=== PATIENT | female | born 1955 | race Caucasian/White ===

== ENCOUNTER 2018-03-19 07:00 | Inpatient (IN) | payer BC, MEDICARE ==
--- NOTE | 2018-03-18 17:33 | Diagnostic Imaging Report ---
EXAMINATION: CHEST 2 VIEWS INDICATION: ^PRE OP ^[id number] ^1700 ^DR ORDERS COMPARISON: 08/25/2006 FINDINGS: PA and lateral views TUBES and LINES: None. LUNGS: Limited by body habitus. Mild central peribronchovascular thickening/cuffing, improved from prior exam. No definite focal consolidation. PLEURA: No pleural effusion or pneumothorax. HEART AND MEDIASTINUM: The cardiomediastinal silhouette is unremarkable. BONES AND SOFT TISSUES: No acute osseous lesion. Soft tissues are unremarkable. UPPER ABDOMEN: No free air under the diaphragm. IMPRESSION: Mild central peribronchovascular thickening/cuffing, improved from prior exam. No definite focal consolidation. Signed by: Dr. Shawn Lagunas MD on 03/18/2018 5:30 PM
[2018-03-18 17:45] LABS: BASOPHILS # (AUTO) 0.1 (0.0-0.1); BASOPHILS % 0.5 % (0.0-1.0); EOSINOPHILS # (AUTO) 0.1 (0.0-0.4); EOSINOPHILS % 0.9 % (0.0-6.0); HEMATOCRIT 42.4 % (34.2-44.1); LYMPHOCYTES % 23.1 % (18.0-39.1); MEAN CORPUSCULAR HEMOGLOBIN 30.9 pg (28-32); MEAN CORPUSCULAR VOLUME 93.6 fL (81-99); MONOCYTES # (AUTO) 0.9 (0.2-0.8); MONOCYTES % 7.1 % (4.4-11.3); NEUTROPHILS # (AUTO) 8.7 (2.1-6.9); NEUTROPHILS % 67.9 % (38.7-80.0); PLATELET COUNT 325 x10e3/uL (140-360); RED BLOOD COUNT 4.53 x10e6/uL (3.6-5.1); RED CELL DISTRIBUTION WIDTH 12.5 % (11.7-14.4)
[2018-03-18 18:02] LABS: ANION GAP 18.5 mmol/L (8-16); CALCIUM 10.5 mg/dL (8.4-10.2); CREATININE, SERUM 1.02 mg/dL (0.57-1.11)
[2018-03-18 18:05] LABS: POTASSIUM 5.5 mmol/L (3.5-5.1)
[~2018-03-19] VITALS: Ht 165.1 cm; Wt 106.4 kg
[~2018-03-19 07:00] MED LIST: ACTOS30 MG; AMARYL1 MG PO; CYCLOSET0.8 MG; Chantix; EFFEXOR75 MG PO; FARXIGA PO; FERROUS SULFAT325 MG PO; FLEXERIL10 MG PO; GLIMEPIRIDE2 MG PO; HUMALOG100 UNIT/1 SQ; HYDROCODON-ACE1 EA11 PO; HYDROCODON-ACE1 EAC9 PO; LANTUS100 UNIT/1 SQ; LANTUS100 UNITS/ SQ; LASIX40 MG PO; LEVAQUIN500 MG PO; LISINOPRIL2.5 MG PO; METFORMIN HCL500 MG PO; METOPROLOL TART25 MG PO; MUPIROCIN22 GM TOP; NORCO 10-325 T1 EACH PO; PANTOPRAZOLE SO40 MG PO; PLAVIX75 MG PO; POTASSIUM CHLO20 ME1 PO; SULFAMETHOXAZO1 EAC1 PO; SUPER B COMPLE150 MG PO; ULTRAM 50MG50 MG PO; VENLAFAXINE HC100 MG PO; VENLAFAXINE PO; VITAMIN D-32000 UNIT PO; XANAX0.5 MG PO; XANAX1 MG PO; ZOLPIDEM TARTRA10 MG PO
--- OUTSIDE RECORDS SUMMARY | 2018-03-19 07:03 | XMS REPORT ---
Author Author [facility] Address Unknown Phone Unavailable Care Team Providers Care Mechanical Design Engineer Name Role Phone JULIO CESAR MARIN Unavailable Unavailable Problems This patient has no known problems. Allergies, Adverse Reactions, Alerts This patient has no known allergies or adverse reactions. Medications This patient has no known medications. Results Test Description Test Time Test Comments Text Results Atomic Results Result Comments CHEST 2 VIEWS 2018-03-18 17:29:00 [facility] [address] [address] Patient Name: PEYMAN LOPEZ MR #: [id number] : 1955 Age/Sex: 62/F Req #: [id number] Adm Physician: Ordered by: JULIO CESAR MARIN DPM Report #: [id number] Location: OR Room/Bed: Procedure: [id number] DX/CHEST 2 VIEWS Exam Date: 03/18/18 Exam Time: 1700 REPORT STATUS: Signed EXAMINATION: CHEST 2 VIEWS INDICATION: PRE OP [id number] DR ORDERS COMPARISON: 08/25/2006 FINDINGS: PA and lateral views TUBES and LINES: None. LUNGS: Limited by body habitus. Mild central peribronchovascular thickening/cuffing, improved from prior exam. No definite focal consolidation. PLEURA: No pleural effusion or pneumothorax. HEART AND MEDIASTINUM: The cardiomediastinal silhouette is unremarkable. BONES AND SOFT TISSUES: No acute osseous lesion. Soft tissues are unremarkable. UPPER ABDOMEN: No free air under the diaphragm. IMPRESSION: Mild central pe ribronchovascular thickening/cuffing, improved from prior exam. No definite focal consolidation. Signed by: Dr. Shawn Lagunas MD on 03/18/2018 5:30 PM Dictated By: SHAWN LAGUNAS MD 173 Transcribed By: SHAYLEE on 03/18/18 173 COPY TO: JULIO CESAR MARIN DPM
[2018-03-19] MEDS ORDERED: VANCOMYCIN 1GM/NS 250 ML 250 ML ONE (07:27)
[2018-03-19] MEDS ORDERED: BACITRACIN 50,000 UNIT VIAL ONE (09:10)
[2018-03-19] MEDS ORDERED: FENTANYL CITRATE/PF 100MCG/2 ML INJ ONE ×2 (10:16→16:25)
--- NOTE | 2018-03-19 11:09 | Consultation ---
DATE OF CONSULTATION: March 19, 2018 CHIEF COMPLAINT/HISTORY OF CHIEF COMPLAINT: Ms. Augusta Tipton is well known to me as a patient being seen by myself and Dr. Moreno on an outpatient basis. She presented to my office last week with an ulceration/foreign body, plantar aspect of the left foot. She was placed on oral antibiotics and a local wound debridement was performed in the office. She failed to respond, and in fact actually worsened with an increase in redness, swelling and drainage to the left foot, and was ultimately admitted this morning through outpatient for I and D of the left foot, and direct admit for further medical workup, particularly infectious disease and vascular. PAST MEDICAL HISTORY: The patient does have diabetes, hypertension and a history of heart disease. REVIEW OF SYSTEMS: Otherwise negative. She is complaining of pain at this point in the left foot, which she states is worsening rather than improving. SOCIAL HISTORY: Shows a obese white female who lives with her . She does not drink alcohol or smoke tobacco. ALLERGIES: ADMITTED TO PENICILLIN. CURRENT MEDICATIONS: Are well documented elsewhere within the chart. PHYSICAL EXAMINATION LOWER EXTREMITIES: Vascular status: The patient has nonpalpable pedal pulses in the dorsalis pedis or posterior tibial. Skin temperature is warm with redness on the dorsum of the foot. NEUROLOGIC: There is a loss of protective sensation. However, the patient is complaining of pain in the left lower extremity increasing in intensity. DERMATOLOGIC: There is what appears to be a portal of entry subsecond metatarsal on the left foot, small and sealed over with a surrounding pallor that resembles an abscess. There is a redness with mild streaking on the dorsum of the foot to the ankle. MUSCULOSKELETAL: Radiographs are negative for obvious bone involvement at this point. No gas is seen on plain films in the office. The patient came in through outpatient today for I and D of this abscessed area on the left foot, and will be admitted direct admit from outpatient stepdown unit to the floor for further medical workup to include MRI, consultations with Dr. Hanley of infectious disease, and Dr. Newman for workup for possible revascularization. Job#: [id number] RI
--- NOTE | 2018-03-19 11:24 | Operative Report ---
DATE OF PROCEDURE: March 19, 2018 Outpatient for direct admit [facility]. PREOPERATIVE DIAGNOSIS: Abscess, cellulitis of left foot. POSTOPERATIVE DIAGNOSIS: Abscess, cellulitis of left foot. TITLE OF OPERATION: Incision and drainage of the left foot. PROCEDURE DETAILS: Patient was taken to the operating room in a mildly sedated state and placed upon the operating table in supine position. Following induction of a general anesthetic, the left lower extremity was elevated to 60 degrees to exsanguinate. No tourniquet was used. Placed upon the operating table. A linear longitudinal incision was made overlying what appeared to be a portal of entry of a foreign body in the plantar aspect of the 2nd metatarsal of the left foot. There was no abscessing, no obvious purulence. There was necrotic wound debris within the wound itself. This was debrided and the area was irrigated with Simpulse to clear the area. The plantar wound with hyperkeratotic thickened, hyperkeratotic wound was removed from the wound as well. The area was packed open with 1/4 inch iodoform and it was noted that there was very minimal bleeding at the time of surgery in the area of the wound. The patient is being admitted for IV antibiotics, further medical workup, and evaluation for possible limb salvage with invasive cardiology due to severe peripheral arterial disease in a nonhealing, worsening wound. She will be admitted after PACU. Job#: [id number] FRANCIS
[2018-03-19] MEDS ORDERED: PROMETHAZINE 25MG/ NS 50ML (IV) IV PRN (11:45)
[2018-03-19] MEDS ORDERED: MAGNESIUM HYDROXIDE 30 ML UDC PO PRN (11:45)
[2018-03-19] MEDS ORDERED: SODIUM CHLORIDE FLUSH 10 ML SYR INJ PRN (11:45)
[2018-03-19 12:35] VITALS: BP 120/58
[2018-03-19] MEDS: HYDROCODONE/APAP 5MG-325MG TAB PO PRN ×2 (12:59→23:39)
--- NOTE | 2018-03-19 13:33 | Consultation ---
DATE OF CONSULTATION: March 19, 2018 REASON FOR CONSULTATION: Infection of the foot not healing. HISTORY OF PRESENT ILLNESS: This patient who is a 62-year-old female with history of diabetes mellitus, history of obesity, history of hypertension, stepped on a piece of glass about 10 days ago, went to see Dr. Li. That piece of glass was removed. The patient, however, continued to have redness and swelling and not doing well. The patient was admitted and underwent debridement today. Apparently there is no blood flow noted intraoperatively. Infectious disease was consulted. MEDICATION LIST: She is currently on acetaminophen. LABORATORY DATA: White count 12.88, hemoglobin 14.0, hematocrit 42. Her sodium 134, potassium 5.5, creatinine 1.02, glucose 252. Her chest x-ray showed no focal consolidation. PHYSICAL EXAMINATION GENERAL: She is currently alert, oriented, does not seem to be in acute distress. VITALS: Stable, currently afebrile. HEENT: She is not icteric. NECK: Supple. CHEST: Clear. COR: S1, S2, no murmur. ABDOMEN: Soft. Bowel sounds are present. No tenderness. EXTREMITIES: No edema. IMPRESSION: Infection of the foot, status post irrigation and debridement. Agree with vascular workup. Will obtain x-ray and an magnetic resonance imaging to rule out bone infection. Will put the patient on vancomycin and will follow with vancomycin trough on the 4th dose. Will add cefepime 1 g q.12. Aware of PENICILLIN ALLERGIES, but the patient did well with Zosyn. Will obtain an x-ray and a magnetic resonance imaging. Check complete blood count, chemistry panel and sed rate and will follow with you. Job#: [id number] FRANCIS
[2018-03-19] MEDS: VANCOMYCIN HCL 1.25 GM in SODIUM CHLORIDE 0.9% 250ML 250 ML IV SCH (14:00)
[2018-03-19 14:04] VITALS: BP 120/58
[2018-03-19] MEDS ORDERED: LIDOCAINE HCL 2% LOCAL INJ 5 ML SDV VIAL INJ ONE (15:22)
[2018-03-19] MEDS ORDERED: PROPOFOL IV EMULSION 10 MG/ML 20 ML VIAL ONE (15:22)
[2018-03-19] MEDS ORDERED: SEVOFLURANE INHAL SOLN 250 ML PEN BTL ONE (15:22)
[2018-03-19] MEDS ORDERED: ONDANSETRON HCL INJ 2 MG/ML VIAL ONE (15:22)
[2018-03-19] MEDS ORDERED: METOCLOPRAMIDE HCL 10 MG/2ML VIAL ONE (15:22)
[2018-03-19 15:52] VITALS: BP 115/53
--- NOTE | 2018-03-19 15:53 | Consultation ---
DATE OF CONSULTATION: March 19, 2018 CARDIOLOGY CONSULTATION REASON FOR CONSULTATION: Peripheral arterial disease. HISTORY OF PRESENT ILLNESS: This is a 62-year-old woman who has a history of obesity, diabetes mellitus, hypertension, hyperlipidemia, congestive heart failure, and prior tobacco use, who presented for elective incision and drainage of left foot abscess. The patient evidently stepped on a foreign body and continued to not have adequate healing. Underwent local wound debridement. However, this continued to worsen, which prompted her admission. She otherwise feels well. Denies any chest pain, shortness of breath or palpitations. We have been asked to evaluate the patient for peripheral vascular disease. PAST MEDICAL HISTORY: Hypertension, hyperlipidemia, obesity, tobacco use, congestive heart failure, peripheral arterial disease. PAST SURGICAL HISTORY: Incision and drainage. FAMILY HISTORY: No premature coronary artery disease or sudden cardiac . SOCIAL HISTORY: Former tobacco use. Denies any current or illicit drug use, alcohol use or tobacco use. ALLERGIES: PENICILLIN. MEDICATIONS: See medication reconciliation form. PHYSICAL EXAMINATION VITALS: Temperature is 97, respirations are 20, oxygen saturation is 93% on room air, blood pressure is 120/58, heart rate is 93. GENERAL: Well-appearing, obese and in no apparent distress. Lying comfortably in bed. HEENT: Head is normocephalic and atraumatic. Eyes: Extraocular movements are intact. Throat is clear. NECK: No JVD. No bruits. CARDIOVASCULAR: She is regular rate and rhythm. Mild systolic murmur at the base of the left sternal border. LUNGS: Clear to auscultation. ABDOMEN: Soft, nontender and nondistended. EXTREMITIES: There are mild skin changes of the lower extremity. There is a left foot wound dressed. Pulses are diminished in bilateral lower extremities. INPATIENT CARDIOVASCULAR MEDICATIONS: Reviewed. LABORATORY DATA: Reviewed. IMAGING DATA: Shows a chest x-ray that shows mild central peribronchovascular thickening . No focal consolidation. IMPRESSION 1. Peripheral arterial disease with lower extremity wound. 2. Hypertension. 3. Hyperlipidemia. 4. Prior tobacco use. 5. Diabetes mellitus. RECOMMENDATIONS: Clearly, this patient has physical exam findings of peripheral arterial disease with poor healing of her left foot wound. Will order arterial Dopplers and review these once these have been resulted. The patient may require inpatient peripheral intervention. Would reinitiate aspirin and statins as indicated for peripheral arterial disease. Job#: [id number] RI
[2018-03-19] MEDS ORDERED: TRAMADOL HCL 50 MG TAB PO SCH (16:00)
[2018-03-19] MEDS ORDERED: TRAMADOL HCL 50 MG TAB PO PRN (16:15)
[2018-03-19] MEDS ORDERED: MIDAZOLAM HCL 2 MG/2 ML VIAL ONE (16:25)
[2018-03-19] MEDS: CEFEPIME HCL 1 GM VIAL IV SCH (16:32)
[2018-03-19] MEDS: GLIMEPIRIDE 2 MG TAB PO SCH (18:15)
[2018-03-19] MEDS: BISMUTH SUBSALICYLATE 262 MG TAB PO SCH ×2 (18:15→21:00)
[2018-03-19] MEDS: TRIMETHOPRIM/SULFAMETHOXAZOLE 160-800 MG TAB PO SCH (18:16)
[2018-03-19 20:00] VITALS: BP 124/60
[2018-03-19] MEDS: ALPRAZOLAM 1 MG TAB PO SCH (21:00)
[2018-03-19] MEDS: LISINOPRIL 2.5 MG TAB PO SCH (21:00)
[2018-03-19] MEDS ORDERED: NON-FORMULARY MEDICATION (Zolpidem Tartrate 10 MG) PO SCH (21:00)
[2018-03-19] MEDS: METOPROLOL TARTRATE 25 MG TAB PO SCH (21:00)
[2018-03-19] MEDS: INSULIN DETEMIR 100 UNIT/ML PEN SQ SCH (21:00)
--- NOTE | 2018-03-19 21:29 | Diagnostic Imaging Report ---
EXAM: FOOT LEFT COMPLETE, AP, lateral and oblique INDICATION: Infection COMPARISON: None FINDINGS: BONES: No acute fractures. Very small well-corticated ossification adjacent to the distal lateral fifth digit proximal phalanx, likely from an old fracture. Moderate plantar calcaneal spur. JOINTS: No malalignment. SOFT TISSUES: Soft tissue swelling at the posterior dorsum of the foot. No radiopaque foreign bodies. Regional vascular calcifications. IMPRESSION: Soft tissue swelling of the foot without radial opaque foreign body or erosion. Signed by: Dr. Mary Howell M.D. on 03/19/2018 9:26 PM
[2018-03-19] MEDS: ZOLPIDEM TARTRATE 10 MG TAB PO PRN (23:39)
[2018-03-20] VITALS (7 sets, daily range): BP systolic 123–148; BP diastolic 57–66
[2018-03-20] MEDS: VANCOMYCIN HCL 1.25 GM in SODIUM CHLORIDE 0.9% 250ML 250 ML IV SCH ×2 (02:13→14:41)
[2018-03-20] MEDS: CEFEPIME HCL 1 GM VIAL IV SCH ×2 (02:13→12:30)
[2018-03-20 05:14] LABS: HEMATOCRIT 40.1 % (34.2-44.1); HEMOGLOBIN 13.2 g/dL (12.0-16.0); MEAN CORPUSCULAR HEMOGLOBIN 30.4 pg (28-32); MEAN CORPUSCULAR HGB CONC 32.9 g/dL (31-35); MEAN CORPUSCULAR VOLUME 92.4 fL (81-99); PLATELET COUNT 390 x10e3/uL (140-360); RED BLOOD COUNT 4.34 x10e6/uL (3.6-5.1); RED CELL DISTRIBUTION WIDTH 12.5 % (11.7-14.4)
[2018-03-20 05:38] LABS: ALANINE AMINOTRANSFERASE 15 IU/L (0-55); ALBUMIN/GLOBULIN RATIO 0.8 (0.8-2.0); ALKALINE PHOSPHATASE 100 IU/L (40-150); ANION GAP 12.5 mmol/L (8-16); BLOOD UREA NITROGEN 13 mg/dL (7-26); BUN/CREATININE RATIO 19 (6-25); CALCIUM 9.6 mg/dL (8.4-10.2); CARBON DIOXIDE 25 mmol/L (22-29); CHLORIDE 108 mmol/L (98-107); CREATININE, SERUM 0.69 mg/dL (0.57-1.11); EST GLOMERULAR FILTRATION RATE > 60 ML/MIN (60-); POTASSIUM 3.5 mmol/L (3.5-5.1); SODIUM 142 mmol/L (136-145)
[2018-03-20 05:54] LABS: GLUCOSE 50 mg/dL (74-118)
[2018-03-20] MEDS: HYDROCODONE/APAP 5MG-325MG TAB PO PRN ×2 (06:40→12:40)
--- NOTE | 2018-03-20 07:03 | Diagnostic Imaging Report ---
EXAM: CHEST SINGLE (PORTABLE), AP 1 view INDICATION: Peribronchial thickening COMPARISON: PA and lateral view the chest and retracted 2017 FINDINGS: LINES/TUBES: None LUNGS: No consolidations or edema. PLEURA: No effusions or pneumothorax. HEART AND MEDIASTINUM: Normal size and contour. BONES AND SOFT TISSUES: No acute findings. IMPRESSION: No acute thoracic abnormality. Signed by: Dr. Mary Howell M.D. on 03/20/2018 7:00 AM
[2018-03-20 07:32] LABS: EOSINOPHILS % (MANUAL) 3 % (0-7); LYMPHOCYTES % (MANUAL) 44 % (19-48); MONOCYTES % (MANUAL) 5 % (3.4-9.0); NEUTROPHILS % (MANUAL) 48 % (40-74); RBC MORPHOLOGY COMMENT NORMAL
[2018-03-20 07:33] LABS: PLATELET ESTIMATE ADEQUATE; PLATELET MORPHOLOGY COMMENT FEW LARGE
--- NOTE | 2018-03-20 08:56 | Progress Note ---
DATE: March 20, 2018 SUBJECTIVE: Patient is here for infection of the left lower extremity and patient is status post I and D of the abscess. Patient currently is sleepy, complains of some pain and patient is on pain management with tramadol. Patient also has a history of hypertension, is currently on lisinopril and metoprolol and for PAD, she is on Plavix. Currently getting vancomycin for her infection. OBJECTIVE VITAL SIGNS: Temperature is 96.2, pulse of 80, blood pressure is 125/58, SpO2 of 93%. GENERAL: Alert and oriented x3, sleepy but arousable. LUNGS: Clear to auscultation bilaterally. NECK: No JVD present. CVS: S1, S2 normal. ABDOMEN: Nontender. EXTREMITIES: Left lower extremity in wraps. Decreased pulses to the lower extremities bilaterally. ASSESSMENT AND PLAN 1. Left lower extremity abscess, status post incision and drainage. 2. Peripheral arterial disease. Patient is on Plavix. 3. Hyperlipidemia. Continue on statins. Prior tobacco use. We will continue monitoring. 1. Diabetes mellitus. The patient is on a sliding scale and is on oral diabetic medications too and Levemir 100 units nighttime. 1. We will continue to monitor the patient along with all consultants. For further information, look in the chart. Patient is allergic to PENICILLINS. Job#: [id number]
[2018-03-20] MEDS ORDERED: VENLAFAXINE HCL 100 MG PO SCH (09:00)
[2018-03-20] MEDS: BISMUTH SUBSALICYLATE 262 MG TAB PO SCH ×3 (09:00→20:58)
[2018-03-20] MEDS ORDERED: MUPIROCIN 2% OINT 22 GM TUBE TOP SCH (09:00)
[2018-03-20] MEDS: NON-FORMULARY MEDICATION ([Farxiga] 10 MG) PO SCH (09:00)
[2018-03-20] MEDS: VENLAFAXINE HCL 100 MG PO SCH (09:00)
[2018-03-20] MEDS: TRIMETHOPRIM/SULFAMETHOXAZOLE 160-800 MG TAB PO SCH ×2 (09:01→16:41)
[2018-03-20] MEDS: ALPRAZOLAM 1 MG TAB PO SCH ×3 (09:01→21:27)
[2018-03-20] MEDS: CLOPIDOGREL BISULFATE 75 MG TAB PO SCH (09:01)
[2018-03-20] MEDS: GLIMEPIRIDE 2 MG TAB PO SCH ×2 (09:01→16:41)
--- NOTE | 2018-03-20 12:15 | Progress Note ---
DATE: March 20, 2018 SUBJECTIVE: This patient, at this point in time, currently denies any nausea, vomiting, fever, chills, any thigh pain, chest pain, calf pain, or shortness of breath. PHYSICAL EXAMINATION: Reveals dressing is intact. No active drainage. OBJECTIVE EVALUATION: Patient is alert, awake and oriented x3, currently in no acute distress. Vital signs are stable. Lower extremity was reviewed which reveals decreased edema, decreased erythema, no active drainage. Packing is intact and in place. The wound on the plantar aspect of the left foot appears to be healthy and improving. Decreased edema and skin lines are present. ASSESSMENT 1. Status post incision and drainage with removal of foreign body, left foot. 2. Diabetes mellitus with peripheral neuropathy. 3. Peripheral vascular disease, left lower extremity. RECOMMENDATIONS: At this point in time, the dressing will be replaced. We still are awaiting vascular evaluation and Dr. Li will follow up on Thursday. Additionally, continue IV antibiotics and wound care as prescribed. Job#: [id number]
--- NOTE | 2018-03-20 17:49 | Progress Note ---
DATE: March 20, 2018 CARDIOLOGY PROGRESS NOTE SUBJECTIVE: Patient denies any chest pain or shortness of breath; however, does report some lower extremity pain on the left. OBJECTIVE VITAL SIGNS: Temperature is 98.1, heart rate is 97, respirations are 20, blood pressure is 146/65, oxygen saturation is 95% on 2 liters nasal cannula. GENERAL: Well-appearing obese woman, lying comfortably in bed, in no apparent distress. CARDIOVASCULAR: Regular rate and rhythm. LUNGS: Clear to auscultation. ABDOMEN: Obese, soft, nontender. EXTREMITIES: Diminished pulses. Left foot wound, which is dressed. DIAGNOSTIC DATA: Arterial Doppler ultrasound shows monophasic waveforms in the right femoral, popliteal, and tibial vessels. Also elevated velocities in the left femoral, popliteal, and tibial vessels as well. IMPRESSION 1. Peripheral arterial disease. 2. Lower extremity wound and abscess. 3. Hypertension. 4. Hyperlipidemia. 5. Prior tobacco use. 6. Diabetes mellitus. RECOMMENDATIONS: Continue current cardiovascular medications. Dopplers were reviewed and notable for bilateral lower extremity peripheral arterial disease. Patient likely will benefit from conventional angiography and possible intervention to allow for local wound healing. Job#: [id number] MAINOR
[2018-03-20] MEDS: METOPROLOL TARTRATE 25 MG TAB PO SCH (21:26)
[2018-03-20] MEDS: ZOLPIDEM TARTRATE 10 MG TAB PO PRN (21:27)
[2018-03-20] MEDS: LISINOPRIL 2.5 MG TAB PO SCH (21:27)
[2018-03-20] MEDS: INSULIN DETEMIR 100 UNIT/ML PEN SQ SCH (21:28)
[2018-03-21] VITALS (8 sets, daily range): BP systolic 111–180; BP diastolic 50–79
[2018-03-21] MEDS: VANCOMYCIN HCL 1.25 GM in SODIUM CHLORIDE 0.9% 250ML 250 ML IV SCH ×2 (02:06→16:18)
[2018-03-21] MEDS: CEFEPIME HCL 1 GM VIAL IV SCH (02:06)
[2018-03-21] MEDS: HYDROCODONE/APAP 5MG-325MG TAB PO PRN ×2 (03:20→20:25)
[2018-03-21 06:20] LABS: BASOPHILS % 0.4 % (0.0-1.0); EOSINOPHILS # (AUTO) 0.1 (0.0-0.4); EOSINOPHILS % 1.3 % (0.0-6.0); HEMOGLOBIN 12.2 g/dL (12.0-16.0); LYMPHOCYTES # (AUTO) 2.5 (1.0-3.2); LYMPHOCYTES % 24.7 % (18.0-39.1); MEAN CORPUSCULAR HEMOGLOBIN 30.7 pg (28-32); MONOCYTES # (AUTO) 0.8 (0.2-0.8); MONOCYTES % 7.9 % (4.4-11.3); NEUTROPHILS # (AUTO) 6.7 (2.1-6.9); PLATELET COUNT 309 x10e3/uL (140-360); RED BLOOD COUNT 3.98 x10e6/uL (3.6-5.1); RED CELL DISTRIBUTION WIDTH 12.3 % (11.7-14.4)
[2018-03-21 06:39] LABS: ANION GAP 11.2 mmol/L (8-16); BLOOD UREA NITROGEN 13 mg/dL (7-26); BUN/CREATININE RATIO 17 (6-25); CALCIUM 9.3 mg/dL (8.4-10.2); CARBON DIOXIDE 25 mmol/L (22-29); CHLORIDE 105 mmol/L (98-107); CREATININE, SERUM 0.77 mg/dL (0.57-1.11); EST GLOMERULAR FILTRATION RATE > 60 ML/MIN (60-); GLUCOSE 242 mg/dL (74-118); POTASSIUM 4.2 mmol/L (3.5-5.1); SODIUM 137 mmol/L (136-145)
--- NOTE | 2018-03-21 07:42 | Progress Note ---
DATE: March 21, 2018 SUBJECTIVE: Patient is sleeping, easily arousable, chest pain free, complaining of some pain in the left lower extremity, controlled with pain medication. OBJECTIVE VITAL SIGNS: Temperature is 97, pulse of 91, blood pressure is 148/66, and SpO2 of 97%. GENERAL: Patient is alert and oriented x3, , snoring, possible diagnosis of ILANA. LUNGS: Clear to auscultation bilaterally. CARDIOVASCULAR: S1 and S2 normal. Regular rhythm. ABDOMEN: Soft and nontender. EXTREMITIES: Diminished pulses. Left lower extremity dressed with no erythema present in the calf areas. LABORATORY AND DIAGNOSTIC DATA: Last potassium was 3.5. Hemoglobin 13.2 and hematocrit 40.2. Arterial Doppler showed peripheral arterial disease. ASSESSMENT AND PLAN 1. Left lower extremity cellulitis: Patient has podiatry consult and also a consult with cardiology for possible intervention. 2. Left extremity wound and abscess, status post debridement. 3. Hypertension: Continue on medications. 4. Hyperlipidemia: Continue on statin. 5. Diabetes mellitus: Continue with insulin Levemir and also insulin sliding scale. 1. We will add gastrointestinal prophylaxis to the medication regimen. Otherwise, continue same program. Job#: [id number] RYAN
[2018-03-21] MEDS: BISMUTH SUBSALICYLATE 262 MG TAB PO SCH ×3 (08:19→21:00)
[2018-03-21] MEDS: GLIMEPIRIDE 2 MG TAB PO SCH ×2 (08:26→16:18)
[2018-03-21] MEDS: NON-FORMULARY MEDICATION ([Farxiga] 10 MG) PO SCH (08:26)
[2018-03-21] MEDS: VENLAFAXINE HCL 100 MG PO SCH (08:26)
[2018-03-21] MEDS: TRIMETHOPRIM/SULFAMETHOXAZOLE 160-800 MG TAB PO SCH ×2 (08:26→16:18)
[2018-03-21] MEDS: CLOPIDOGREL BISULFATE 75 MG TAB PO SCH (08:26)
[2018-03-21] MEDS: ALPRAZOLAM 1 MG TAB PO SCH ×3 (08:26→22:46)
[2018-03-21] MEDS ORDERED: CEFAZOLIN SOD 1 GM/D5W 50ML 50 ML IV SCH (14:00)
[2018-03-21] MEDS: CEFAZOLIN SOD 1 GM VIAL IV SCH ×2 (15:39→22:46)
[2018-03-21] MEDS: INSULIN DETEMIR 100 UNIT/ML PEN SQ SCH (22:44)
[2018-03-21] MEDS: METOPROLOL TARTRATE 25 MG TAB PO SCH (22:47)
[2018-03-21] MEDS: LISINOPRIL 2.5 MG TAB PO SCH (22:47)
[2018-03-22] VITALS (11 sets, daily range): BP systolic 113–157; BP diastolic 50–86
[2018-03-22] MEDS: VANCOMYCIN HCL 1.25 GM in SODIUM CHLORIDE 0.9% 250ML 250 ML IV SCH (04:14)
[2018-03-22] MEDS: CEFAZOLIN SOD 1 GM VIAL IV SCH ×3 (06:46→22:00)
[2018-03-22 08:53] LABS: INR 0.76; PROTHROMBIN TIME 11.4 seconds (11.9-14.5)
[2018-03-22] MEDS: CLOPIDOGREL BISULFATE 75 MG TAB PO SCH (09:00)
[2018-03-22] MEDS: BISMUTH SUBSALICYLATE 262 MG TAB PO SCH ×3 (09:00→21:00)
[2018-03-22] MEDS: NON-FORMULARY MEDICATION ([Farxiga] 10 MG) PO SCH ×2 (09:03→11:51)
[2018-03-22] MEDS: ALPRAZOLAM 1 MG TAB PO SCH ×3 (09:03→21:05)
[2018-03-22] MEDS: TRIMETHOPRIM/SULFAMETHOXAZOLE 160-800 MG TAB PO SCH ×2 (09:03→18:03)
[2018-03-22] MEDS: VENLAFAXINE HCL 100 MG PO SCH (09:03)
--- NOTE | 2018-03-22 09:15 | Progress Note ---
DATE: March 22, 2018 Patient is seen today, resting comfortably. No pain currently in her left or right lower extremity. Family is present awaiting further workup by interventional cardiology. Abdominal peripheral angiography with possible intervention scheduled for today. Labs and events of the weekend were reviewed and discussed with the patient. Patient is stable, and I will continue to follow along with you. Job#: [id number]
--- NOTE | 2018-03-22 11:22 | Diagnostic Imaging Report ---
TECHNIQUE: Magnetic resonance imaging of the LEFT foot (forefoot) was performed WITHOUT injected contrast. Motion artifact partially limits sensitivity and specificity of the exam. HISTORY: Abscess, stepped on piece of glass 3 weeks ago, diabetic COMPARISON: Left foot radiographs March 19, 2018 DISCUSSION: Bone: No focal or infiltrative bone marrow replacing abnormality. No acute fracture or osteonecrosis. Joints: No dislocation. No effusion. Soft Tissues: Linear heterogeneous signal within the plantar soft tissues at the level of the base of the second proximal phalanx with associated subtle plantar soft tissue defect, regional edema and ill-defined 1 cm confluent fluid signal intensity within the plantar soft tissues medial to the base of the second proximal phalanx (series 9 image 22). Enhancement characteristics cannot be assessed. IMPRESSION: 1. No evidence of osteomyelitis. 2. Plantar soft tissue defect with associated regional edema and focal 1 cm fluid intensity which may reflect an evolving phlegmon or early abscess. Given these images, it is indeterminate if this is a drainable fluid collection. Signed by: Dr. Callum Read D.O., M.M.M. on 03/22/2018 11:19 AM
[2018-03-22] MEDS: GLIMEPIRIDE 2 MG TAB PO SCH ×2 (11:51→18:03)
[2018-03-22] MEDS: HYDROCODONE/APAP 5MG-325MG TAB PO PRN ×3 (11:51→22:03)
[2018-03-22] MEDS ORDERED: MIDAZOLAM HCL 2 MG/2 ML VIAL ONE (15:50)
[2018-03-22] MEDS ORDERED: SODIUM CHLORIDE 0.9% 1000ML 1,000 ML ONE ×2 (15:51→16:29)
[2018-03-22] MEDS ORDERED: IOPAMIDOL 300MG/ML 100 ML INFUS..BTL IV ONE ×2 (15:51→16:45)
[2018-03-22] MEDS ORDERED: FENTANYL CITRATE/PF 100MCG/2 ML INJ ONE (15:51)
[2018-03-22] MEDS ORDERED: HEPARIN SOD/SOD CHLORIDE 2,000 ML ONE (15:51)
[2018-03-22] MEDS ORDERED: LIDOCAINE HCL 2% LOCAL 20 ML VIAL ONE (15:51)
[2018-03-22] MEDS ORDERED: VERAPAMIL HCL 2.5 MG/ML 2 ML VIAL ONE (16:29)
[2018-03-22] MEDS ORDERED: NITROGLYCERIN/D5W 200 MCG/ML 250 ML ONE (17:18)
[2018-03-22] MEDS ORDERED: HEPARIN SOD (PORCINE) 1000 UNIT/ML 30ML ONE (17:18)
--- NOTE | 2018-03-22 18:20 | Operative Report ---
DATE OF PROCEDURE: March 22, 2018 PROCEDURES PERFORMED 1. Conscious sedation 70 minutes. 2. Abdominal aortography with bilateral iliofemoral runoff. 3. Third-order peripheral angiography of the left lower extremity. 4. First-order peripheral angiography of the right lower extremity. 5. Primary arterial thrombectomy. 6. Orbital atherectomy and percutaneous transluminal angioplasty of the left superficial femoral artery. PREPROCEDURE DIAGNOSIS: Peripheral arterial disease with nonhealing wound. POSTPROCEDURE DIAGNOSIS: Peripheral arterial disease with nonhealing wound. ESTIMATED BLOOD LOSS: Less than 20 mL. SPECIMENS REMOVED: None. PROCEDURE DETAILS: After informed consent was obtained, the patient was brought to the cardiac catheterization laboratory in a fasting and nonsedated state. Bilateral groins were prepped and draped in the usual sterile fashion. Lidocaine 2% was infiltrated over the right anterior groin for local anesthesia. Using a micropuncture needle, the right common femoral artery was accessed using modified Seldinger technique and a 5-Wolof sheath was placed. Next, an Omni Flush catheter was taken into the infrarenal abdominal aorta and abdominal aortography with bilateral iliofemoral runoff was performed. Next, this catheter was crossed up and over the iliac bifurcation with an Advantage wire and parked in the third-order position. Next, multiple digital subtraction angiography images were performed and revealed 2 severe left superficial femoral artery stenoses. Next, I crossed a 0.035 inch microcatheter into the distal popliteal vessel and performed digital subtraction angiography of the tibial vessels. Next, I crossed a ViperWire into the distal peroneal vessel. Next, I performed multiple runs of orbital atherectomy at both superficial femoral artery stenotic sites. Next, I performed balloon angioplasty with a drug-coated Lutonix balloon of 5 mm in diameter at the distal vessel. Next, a 40 mm Lutonix balloon was used for angioplasty of the proximal stenosis. Subsequent angiography revealed mild dissection in the distal SFA; so, this was tacked up with a 6 x 40 Ultraverse balloon. Final angiography revealed excellent angioplasty results with persistence of 1-vessel runoff. Patient was noted to have a chronic total occlusion of the posterior tibial and anterior tibial vessels at the start of the case. Next, the catheter was pulled back and peripheral angiography was performed of the right lower extremity. The site was closed with a Mynx device. The patient tolerated the procedure well with no immediate complications and was transported back to her room in stable condition. PROCEDURAL FINDINGS 1. Infrarenal abdominal aorta is free of aneurysm or dissection. 2. Bilateral iliac systems are patent. 3. Left superficial femoral artery has 2 tandem 70% and a distal 95% stenotic areas. The popliteal was patent. The anterior tibial and posterior tibial vessels are chronically occluded to the level of the ankle. There is a medium caliber peroneal vessel which then provides collaterals into the distal posterior tibial and anterior tibial. 4. The right superficial femoral artery has a proximal 90% and a mid 70% stenosis. The popliteal and the tibial vessels were not well visualized due to washout. IMPRESSION/RECOMMENDATIONS: This is a 62-year-old woman who presented with a nonhealing wound of the left lower extremity, who underwent successful percutaneous revascularization of the left superficial femoral artery. Patient has 1-vessel runoff with collateralization to the posterior tibial and dorsalis pedis vessels. Continue optimal medical therapy for peripheral arterial disease. Job#: [id number] AGAPITO
--- NOTE | 2018-03-22 18:30 | Progress Note ---
DATE: March 22, 2018 CARDIOLOGY PROGRESS NOTE SUBJECTIVE: Patient reports left lower extremity pain. No chest pain or shortness of breath. OBJECTIVE VITAL SIGNS: Temperature is 97.2, heart rate is 88, respirations are 18, blood pressure is 138/51, oxygen saturation is 95% on room air. GENERAL: Well-appearing, obese woman, lying comfortably in bed. CARDIOVASCULAR: Regular rate and rhythm. LUNGS: Clear to auscultation. ABDOMEN: Soft, nontender. NEUROLOGIC: No focal deficits noted. EXTREMITIES: No edema. Left foot wound wrapped. VASCULAR: Diminished pulses. MEDICATIONS, IMAGING DATA AND LABORATORY: Reviewed. Peripheral angiography revealed severe stenotic lesions to the left superficial femoral artery in addition to chronic total occlusions of the left posterior tibial and anterior tibial vessels. IMPRESSION 1. Peripheral arterial disease. 2. Left lower extremity wound and abscess. 3. Hypertension. 4. Obesity. 5. Hyperlipidemia. 6. Prior tobacco use. 7. Diabetes mellitus. RECOMMENDATIONS: The patient underwent successful orbital atherectomy and percutaneous transluminal angioplasty of 2 stenotic lesions of her left superficial femoral artery. Unfortunately, she has one vessel runoff of the left lower extremity. There is chronic total occlusion of the posterior tibial and anterior tibial vessels, which faintly reconstitute into the distal posterior tibial and dorsalis pedis vessels. She has a medium caliber peroneal vessel which will allow for wound healing after opening up the inflow in the SFA. Continue all current cardiovascular medications and antibiotics therapy per podiatry and primary teams. Job#: [id number]
[2018-03-22] MEDS: INSULIN DETEMIR 100 UNIT/ML PEN SQ SCH (21:00)
[2018-03-22] MEDS: LISINOPRIL 2.5 MG TAB PO SCH (21:05)
[2018-03-22] MEDS: METOPROLOL TARTRATE 25 MG TAB PO SCH (21:05)
[2018-03-22] MEDS: ZOLPIDEM TARTRATE 10 MG TAB PO PRN (22:06)
[2018-03-23] VITALS (8 sets, daily range): BP systolic 115–164; BP diastolic 56–72
[2018-03-23] MEDS: CEFAZOLIN SOD 1 GM VIAL IV SCH ×3 (06:20→22:00)
[2018-03-23] MEDS: BISMUTH SUBSALICYLATE 262 MG TAB PO SCH ×3 (08:57→21:00)
[2018-03-23] MEDS: ALPRAZOLAM 1 MG TAB PO SCH ×3 (09:00→21:05)
[2018-03-23] MEDS: NON-FORMULARY MEDICATION ([Farxiga] 10 MG) PO SCH (09:01)
[2018-03-23] MEDS: GLIMEPIRIDE 2 MG TAB PO SCH ×2 (09:01→16:23)
[2018-03-23] MEDS: TRIMETHOPRIM/SULFAMETHOXAZOLE 160-800 MG TAB PO SCH ×2 (09:02→16:23)
[2018-03-23] MEDS: CLOPIDOGREL BISULFATE 75 MG TAB PO SCH (09:02)
[2018-03-23] MEDS: HYDROCODONE/APAP 5MG-325MG TAB PO PRN (14:00)
--- NOTE | 2018-03-23 19:18 | Progress Note ---
DATE: March 23, 2018 Patient is seen today in followup and re-evaluation of her left foot. It is noted that the left foot has a decrease in edema, decrease in erythema with minimal drainage noted from the plantar wound. Packing is removed today. A review of Dr. 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 The patient underwent a successful atherectomy, however, she has only 1-vessel runoff of the left lower extremity with a total occlusion of posterior tibial and anterior tibial vessels, faintly reconstituting into the distal posterior tibial and dorsalis pedis vessels. She shows mildly improved warmth to the left lower extremity and reduction in pain. After dressing change today, there is still a focal erythema overlying that second metatarsophalangeal joint. I had recommended she remain in-house for an additional day of IV antibiotic. She can go home tomorrow on orals as per Dr. Hanley and follow with myself in the office within 1 week for further local wound care. Bactroban and dry gauze will be applied to the plantar aspect of the left foot once or twice daily after discharge and depending upon drainage. Follow up with me within [address] Ayala as stated for further vascular evaluation and additional procedures as needed. Dr. Hanley has written oral Keflex for her to go home on. Job#: [id number]
[2018-03-23] MEDS: INSULIN DETEMIR 100 UNIT/ML PEN SQ SCH (21:00)
[2018-03-23] MEDS ORDERED: VENLAFAXINE HCL 100 MG PO SCH (21:00)
[2018-03-23] MEDS: LISINOPRIL 2.5 MG TAB PO SCH (21:05)
[2018-03-23] MEDS: METOPROLOL TARTRATE 25 MG TAB PO SCH (21:05)
[2018-03-24] VITALS: BP 136/69
[2018-03-24] MEDS: ZOLPIDEM TARTRATE 10 MG TAB PO PRN (00:47)
[2018-03-24 04:00] VITALS: BP 122/58
[2018-03-24] MEDS: CEFAZOLIN SOD 1 GM VIAL IV SCH (06:15)
[2018-03-24 08:00] VITALS: BP 122/58
[2018-03-24 08:13] VITALS: BP 115/58
[2018-03-24] MEDS: BISMUTH SUBSALICYLATE 262 MG TAB PO SCH ×2 (09:00→15:00)
[2018-03-24] MEDS: NON-FORMULARY MEDICATION ([Farxiga] 10 MG) PO SCH (09:00)
[2018-03-24] MEDS: GLIMEPIRIDE 2 MG TAB PO SCH ×2 (09:00→17:00)
[2018-03-24] MEDS: CLOPIDOGREL BISULFATE 75 MG TAB PO SCH (09:00)
[2018-03-24] MEDS: TRIMETHOPRIM/SULFAMETHOXAZOLE 160-800 MG TAB PO SCH ×2 (09:00→17:00)
[2018-03-24] MEDS: ALPRAZOLAM 1 MG TAB PO SCH ×2 (09:00→15:00)
[2018-03-24] MEDS: HYDROCODONE/APAP 5MG-325MG TAB PO PRN (09:20)
[2018-03-24 12:00] VITALS: BP 130/60
--- NOTE | 2018-03-24 15:12 | Progress Note ---
DATE: March 24, 2018 The patient is postop I and D of an abscess on the plantar aspect of her left foot. She is also status post arthrectomy with stent, left foot. The patient states today her pain seems to be less. She has stood and walked a little and feels less discomfort in her left lower extremity. There also seems to be a decrease in the redness and swelling on the dorsum of the foot. There is very minimal drainage on the plantar wound. The patient's condition is improved. She is still on IV antibiotics and local wound care here in the hospital. Dr. Hanley has written for oral Keflex on discharge based on culture and sensitivity results. Patient showed no osteomyelitis on MR. Based on her current improvement, she is okay to transition to home care with Bactroban, dry gauze and oral antibiotics as per Dr. Hanley. She needs to follow with Dr. Ayala on an outpatient basis with regards to her continued peripheral arterial disease and follow with me within 1 week with regards to the chronic wound and infection on the plantar aspect of the left foot. This was discussed with the patient, who voices an understanding. Dr. Moreno may still yet want to keep her another day based on the patient's discussion with him; but from her foot, she is improved adequately to transition to outpatient care. Job#: [id number]
[2018-03-24 16:00] VITALS: BP 145/63
[2018-03-24] MEDS ORDERED: KEFLEX500 MG PO (17:03)
[2018-04-14] MEDS ORDERED: [UNRECOGNIZED DRUG - OTHER] TOP (15:17)
[2018-04-14] MEDS ORDERED: [UNRECOGNIZED DRUG - OTHER] PO (15:17)
[2018-04-14] MEDS ORDERED: NIGHTTIME COLD PO (15:24)
[2018-04-14] MEDS ORDERED: DAY-TIME COLD-1 EACH PO (15:24)
--- NOTE | 2018-04-17 19:54 | Discharge Summary ---
DISCHARGE DIAGNOSIS: Abscess of the left foot, status post incision and drainage. HISTORY OF PRESENT ILLNESS AND HOSPITAL COURSE: See hospital chart for full details. Patient is a [id number] who presented to Dr. Li, who admitted her because of an abscess of the left foot where he performed an I and D that showed sensitive Staph aureus. Post surgery, she was seen by infectious disease for IV antibiotics. She also had an angiogram done by that found left lower extremity stenosis where they were able to do an arthrectomy with 2 stents, which she was able to tolerate very well. At the time of discharge, she was doing significantly better and she was able to be switched over to p.o. antibiotics by Dr. Hanley and discharged home in good condition and follow up in 1 to 2 weeks with me as well as with Dr. Hanley and Dr. Li. Please see hospital chart for full details. Job#: [id number]
== END 2018-03-24 18:08 | disposition home or self-care (01) | DRG 902 ==
LOC: OR 07:00 → PACU V 10:07 → MED/SURG2 11:25
PROVIDERS: ADMIT Internal Medicine; ATTEND Internal Medicine
PROC: 0JCR0ZZ Extirpation of Matter from Left Foot Subcutaneous Tissue and Fascia, Open Approach (ICD-10-PCS; 2018-03-19)
PROC: 0JBR0ZZ Excision of Left Foot Subcutaneous Tissue and Fascia, Open Approach (ICD-10-PCS; principal; 2018-03-19 09:00)
PROC: 04CL3ZZ Extirpation of Matter from Left Femoral Artery, Percutaneous Approach (ICD-10-PCS; 2018-03-22)
PROC: 047U3Z1 Dilation of Left Peroneal Artery using Drug-Coated Balloon, Percutaneous Approach (ICD-10-PCS; 2018-03-22)
PROC: 04CU3ZZ Extirpation of Matter from Left Peroneal Artery, Percutaneous Approach (ICD-10-PCS; 2018-03-22)
PROC: 047L3Z1 Dilation of Left Femoral Artery using Drug-Coated Balloon, Percutaneous Approach (ICD-10-PCS; 2018-03-22)
PROC: B41D1ZZ Fluoroscopy of Aorta and Bilateral Lower Extremity Arteries using Low Osmolar Contrast (ICD-10-PCS; 2018-03-22)
DX: S91.342A Puncture wound with foreign body, left foot, initial encounter (principal); L03.116 Cellulitis of left lower limb; E11.51 Type 2 diabetes mellitus with diabetic peripheral angiopathy without gangrene; I73.9 Peripheral vascular disease, unspecified; Z79.4 Long term (current) use of insulin; I50.9 Heart failure, unspecified; E66.9 Obesity, unspecified; Z68.39 Body mass index [BMI] 39.0-39.9, adult; B95.62 Methicillin resistant Staphylococcus aureus infection as the cause of diseases classified elsewhere; W25.XXXA Contact with sharp glass, initial encounter; W45.8XXA Other foreign body or object entering through skin, initial encounter; Z87.891 Personal history of nicotine dependence; E78.5 Hyperlipidemia, unspecified; Z88.0 Allergy status to penicillin; I77.9 Disorder of arteries and arterioles, unspecified; I11.0 Hypertensive heart disease with heart failure
CPT/HCPCS: 36247; 36415; 37186; 37225; 71045; 71046; 75625; 75716; 80048; 80053; 80202; 82948; 84132; 85007; 85025; 85027; 85610; 85730; 87071; 87075; 87186; 87205; 93005; 93925; C1725; C1769; J0690; J0692; J1644; J2001; J2250; J2405; J2765; J3370; J7030; J7050; Q9967